=== PATIENT | male | born 1960 | race Caucasian/White ===

== ENCOUNTER → 2018-11-07 | Outpatient (CLI) | payer OTHER ==
--- NOTE | 2018-11-07 10:00 | XR ---
EXAMINATION TYPE: XR knee complete LT DATE OF EXAM: 11/07/2018 COMPARISON: NONE HISTORY: Pain TECHNIQUE: Four views are submitted. FINDINGS: Osseous structures intact. Surgical clips along the medial margin of the left knee. Diffuse osteopeni a noted. There is a suprapatellar bursal fluid collection. Vascular calcifications noted. Mild narrow ing of the medial compartment knee joint. IMPRESSION: 1. Mild osteoarthritis with a moderate-sized suprapatellar bursal fluid collection. If there is marion rn for internal derangement of the knee correlate with MRI.
== END | disposition home or self-care (01) ==
LOC: RADXRMAIN 09:34
PROVIDERS: ATTEND Family Medicine
DX: M17.12 Unilateral primary osteoarthritis, left knee (principal)

== ENCOUNTER → 2021-07-10 | Outpatient (CLI) | payer BC | END | disposition home or self-care (01) | LOC: LABWHC1 14:15 | PROVIDERS: ATTEND Family Medicine | DX: J45.41 Moderate persistent asthma with (acute) exacerbation (principal) | CPT/HCPCS: U0003; U0005 ==

== ENCOUNTER 2021-10-19 16:42 | Emergency (ER) | payer BC ==
[2021-10-19] MEDS ORDERED: IBUPROFEN 600 MG TAB PO STA (18:30)
--- NOTE | 2021-10-19 18:39 | ED ---
General Adult HPI - General Stated complaint: Covid+/Needs Antibodies Source: RN notes reviewed - History of Present Illness Initial comments: Patient was seen as advanced triage purposes: 61-year-old male with a past medical history of CAD, remote bariatric surgery presents to the emergency room for a chief complaint of being Covid positive. Patient tested positive today. He has had symptoms for about 2 days now. Patient took Tylenol about 2 hours ago. Had a fever of 100.5 before leaving the house. Patient has been having a headache as well as sneezing and coughing. Oxygen was going down to 93% at home. Here he is 98%. Denies shortness of breath. Denies chest pain. Patient has no other complaints at this time including shortness of breath, chest pain, abdominal pain, nausea or vomiting, headache, or visual changes. - Related Data Allergies Allergy/AdvReac Type Severity Reaction Status Date / Time No Known Allergies Allergy Verified 10/19/21 18:36 Review of Systems ROS Statement: Those systems with pertinent positive or pertinent negative responses have been documented in the HPI. ROS Other: All systems not noted in ROS Statement are negative. General Exam General appearance: alert, in no apparent distress Head exam: Present: atraumatic Eye exam: Present: normal appearance, PERRL, EOMI. Absent: scleral icterus, conjunctival injection Respiratory exam: Absent: respiratory distress Medical Decision Making - Medical Decision Making vitals are stable. Patient is well-appearing. 97% on room air. Patient is here for COVID-19 antibodies. He tested positive today and symptoms started 2 days ago. Patient was educated on strict return parameters. Will return here for any worsening symptoms. Disposition Clinical Impression: COVID Disposition: HOME SELF-CARE Condition: Good Instructions (If sedation given, give patient instructions): Coronavirus Disease 2019 (COVID-19) Additional Instructions: continue your vitamins. Take Tylenol for fever. Drink plenty of fluids. Follow-up with your doctor and return for any worsening symptoms. Is patient prescribed a controlled substance at d/c from ED?: No Referrals: Karl Graves DO [Primary Care Provider] - 1-2 days Time of Disposition: 18:39
[2021-10-19] MEDS ORDERED: SODIUM CHLORIDE 0.9% 50 ML IVPB ONE (19:00)
[2021-10-19] MEDS ORDERED: BAMLANIVIMAB (EUA) 700 MG, ETESEVIMAB (EUA) 1,400 MG in SODIUM CHLORIDE 0.9% 50 ML IVPB ONE (19:15)
[2021-10-19 19:28] VITALS: RESP 18
[2021-10-19 21:13] VITALS: BP 143/95; PULSE 94; TEMP 99.8
== END 2021-10-19 21:06 | disposition home or self-care (01) ==
LOC: EC 16:42
DX: U07.1 COVID-19 (principal)
CPT/HCPCS: 99283

== ENCOUNTER → 2024-08-18 | Outpatient (CLI) | payer BC ==
[2024-08-18 18:01] LABS: NT-Pro-B-Type Natriuretic Pept 486 pg/mL (0-125)
[2024-08-18 18:14] LABS: BUN/Creat Ratio 20.18 Ratio (12.00-20.00); Blood Urea Nitrogen 22.2 mg/dL (9.0-27.0); Calcium 9.2 mg/dL (8.7-10.3); Carbon Dioxide 25.5 mmol/L (21.6-31.8); Chloride 100 mmol/L (96-109); Glucose 189 mg/dL (70-110); Potassium 4.2 mmol/L (3.5-5.5); Sodium 140 mmol/L (135-145)
== END | disposition home or self-care (01) ==
LOC: LABWHC1 11:35
PROVIDERS: ATTEND Internal Medicine
DX: I50.23 Acute on chronic systolic (congestive) heart failure (principal)
CPT/HCPCS: 36415; 80048; 83880

== ENCOUNTER → 2024-08-19 | Outpatient (CLI) | payer BC ==
[2024-08-19 12:25] LABS: Anisocytosis Slight; Basophils # (A) 0.1 k/uL (0-0.2); Basophils % (A) 1 %; Eosinophils # (A) 0.1 k/uL (0-0.7); Eosinophils % (A) 1 %; HCT 49.5 % (39.0-53.0); HGB 14.5 gm/dL (13.0-17.5); Hypochromasia Marked; Lymphocytes # (A) 1.1 k/uL (1.0-4.8); Lymphocytes % (A) 10 %; MCH 24.4 pg (25.0-35.0); MCHC 29.4 g/dL (31.0-37.0); MCV 82.9 fL (80.0-100.0); Mean Platelet Volume 7.6; Monocytes # (A) 0.7 k/uL (0-1.0); Monocytes % (A) 6 %; Neutrophils # (A) 9.2 k/uL (1.3-7.7); Neutrophils % (A) 80 %; Platelet Count 200 k/uL (150-450); RBC 5.96 m/uL (4.30-5.90); RDW 16.1 % (11.5-15.5); WBC 11.5 k/uL (3.8-10.6)
[2024-08-19 12:34] LABS: African American GFR (CKD) >90 (>60 ml/min/1.73 sqM); Anion Gap 7 mmol/L; Blood Urea Nitrogen 22 mg/dL (9-20); Calcium 9.2 mg/dL (8.4-10.2); Carbon Dioxide 33 mmol/L (22-30); Chloride 99 mmol/L (98-107); Glucose 152 mg/dL (74-99); INR 1.2 (<1.2); Non-African American GFR(CKD) >90 (>60 ml/min/1.73 sqM); Potassium 4.8 mmol/L (3.5-5.1); Prothrombin Time 12.6 sec (10.0-12.5); Sodium 139 mmol/L (137-145)
== END | disposition home or self-care (01) ==
LOC: LABPAT 11:29
PROVIDERS: ATTEND Internal Medicine
DX: Z01.810 Encounter for preprocedural cardiovascular examination (principal)
CPT/HCPCS: 80048; 85025; 85610

== ENCOUNTER → 2025-06-08 | Outpatient (CLI) | payer BC ==
[2025-06-08 20:01] LABS: Anion Gap 13.10 mmol/L (4.00-12.00); BUN/Creat Ratio 18.88 Ratio (12.00-20.00); Blood Urea Nitrogen 15.1 mg/dL (9.0-27.0); Calcium 9.1 mg/dL (8.7-10.3); Carbon Dioxide 25.9 mmol/L (21.6-31.8); Chloride 101 mmol/L (96-109); Glucose 104 mg/dL (70-110); Potassium 4.6 mmol/L (3.5-5.5); Sodium 140 mmol/L (135-145)
[2025-06-08 22:44] LABS: NT-Pro-B-Type Natriuretic Pept 150 pg/mL (0-125)
== END | disposition home or self-care (01) ==
LOC: LABWHC1 16:01
PROVIDERS: ATTEND Internal Medicine
DX: I50.20 Unspecified systolic (congestive) heart failure (principal)
CPT/HCPCS: 36415; 80048; 83880